=== PATIENT | female | born 1995 | race African-American/Black ===

== ENCOUNTER 2017-03-19 09:27 | Emergency (ER) | payer MEDICAID ==
[~2017-03-19 09:27] MED LIST: NO HOME MEDICATION XX
[2017-03-19] MEDS ORDERED: NEXPLANON68 M1 SC (12:07)
[2017-03-19 12:16] LABS: EOS % 2.1 % (0-7); HGB-HEMOGLOBIN 13.9 gm/dl (12.0-15.5); LYMPH % 44.6 % (20-45); LYMPH ABSOLUTE COUNT 0.9 tho/cmm (0.8-4.5); MCH (MEAN CORPUSCULAR HGB) 30.5 pg (28.0-32.0); MCHC MEAN CORPUSCULAR HGB CONC 33.1 % (32.0-36.0); MCV (MEAN CELL VOLUME) 92.1 fl (82.0-96.0); MEAN PLATELET VOLUME 10.1 cmc (9.4-12.4); MONO % 9.7 % (0-12); MONOCYTE ABSOLUTE COUNT 0.2 tho/cmm (0.0-1.2); NEUTROPHIL ABSOLUTE COUNT 0.8 tho/cmm (1.6-8.0); NEUTROPHIL-AUTOMATED 0.8 tho/cmm (1.6-8.0); NEUTROPHILS % 42.6 % (40-80); PLATELET COUNT 227 tho/cmm (150-450); RED BLOOD COUNT 4.56 mil/cmm (4.00-5.20); RED CELL DISTRIBUTION WIDTH 12.1 % (12.4-16.4)
[2017-03-19 12:41] LABS: URINE APPEARANCE CLEAR; URINE BILIRUBIN SMALL (NEG); URINE BLOOD NEGATIVE (NEG); URINE COLOR YELLOW; URINE GLUCOSE (UA) NEGATIVE (NEG); URINE KETONE SMALL (NEG); URINE LEUKOCYTE ESTERASE NEGATIVE (NEG); URINE NITRITE NEGATIVE (NEG); URINE PROTEIN MODERATE (NEG); URINE SPECIFIC GRAVITY 1.025 (1.003-1.030)
[2017-03-19 12:59] LABS: URINE RBC 0 /[HPF] (0-5); URINE WBC RARE /[HPF] (0-5)
[2017-04-21] MEDS ORDERED: NO HOME MEDICATION XX (19:34)
[2017-04-21] MEDS ORDERED: KEFLEX500 M4 PO (22:08)
[2017-04-21] MEDS ORDERED: NORCO 5/3251 TAB PO (22:08)
== END 2017-03-19 13:21 ==
LOC: EDMED 09:27
PROVIDERS: Nurse Practitioner Family
DX: Z32.02 Encounter for pregnancy test, result negative (principal); M54.5 Low back pain